=== PATIENT | male | born 1990 | race Caucasian/White ===

== ENCOUNTER 2016-08-26 18:51 | Emergency (ER) | payer MEDICAID ==
[2016-08-26] MEDS ORDERED: HYDROcod/ACETAM 5/325 MG TABLET PO STA (19:48)
[2016-08-26] MEDS ORDERED: KETOROLAC 60 MG/2 ML VIAL IM STA (19:48)
[2016-08-26] MEDS ORDERED: HYDROcod/ACETAM 5/325 MG TABLET ONE (19:50)
[2016-08-26] MEDS ORDERED: KETOROLAC 60 MG/2 ML VIAL ONE (19:50)
[2016-08-26] MEDS ORDERED: CYCLOBENZAPRINE 10 MG TABLET PO STA (20:37)
[2016-08-26] MEDS ORDERED: HYDROcod/ACET 5/325 Prepack 6 PO STA (20:37)
[2016-08-26] MEDS ORDERED: HYDROcod/ACET 5/325 Prepack 6 PO ONE (20:40)
[2016-08-26] MEDS ORDERED: CYCLOBENZAPRINE 10 MG TABLET PO ONE (20:41)
== END 2016-08-26 20:56 | disposition home or self-care (01) ==
DX: S43.402A Unspecified sprain of left shoulder joint, initial encounter (principal); Z87.891 Personal history of nicotine dependence; S70.02XA Contusion of left hip, initial encounter; W10.9XXA Fall (on) (from) unspecified stairs and steps, initial encounter
CPT/HCPCS: 72170; 73030; 96372; 99283; A9270

== ENCOUNTER 2017-02-26 17:10 | Emergency (ER) | payer MEDICAID ==
[2017-02-26 17:23] VITALS: BP 129/76
[2017-02-26] MEDS ORDERED: DEXAMETHASONE 10 MG/ML VIAL PO STA (19:36)
[2017-02-26] MEDS ORDERED: LIDOCAINE PATCH 5% TOP STA (19:36)
[2017-02-26] MEDS ORDERED: KETOROLAC 60 MG/2 ML VIAL IM STA (19:36)
[2017-02-26] MEDS ORDERED: CYCLOBENZAPRINE 10 MG TABLET PO STA (19:36)
--- NOTE | 2017-02-26 19:39 | ED Physician Documentation ---
History of Present Illness - Stated complaint Stated Complaint: BACK PX - Chief complaint Chief Complaint: Back Pain - Additonal information Additional information: hx from pt 26 y/o m hx back pain at L5S1 recent lifting aggravated the chronic pain pain down R leg no incont or saddle anesthesia Review of Systems Constitutional: denies: Fever, Chills Cardiac: denies: Chest pain / pressure, Palpitations Respiratory: denies: Dyspnea, Cough GI: denies: Abdominal Pain Musculoskeletal: reports: Back pain Neurologic: denies: Focal weakness (except 2/2 pain), Numbness PD PAST MEDICAL HISTORY - Past Medical History Cardiovascular: None, High cholesterol Musculoskeletal: Osteoarthritis, Chronic back pain - Past Surgical History Past Surgical History: Yes - Present Medications Home Medications: Ambulatory Orders Medication Instructions Recorded Confirmed Cyclobenzaprine [Flexeril] 10 mg PO TID PRN #20 tablet 02/26/17 Lidocaine Patch 5% [Lidoderm Patch] 1 each TOP DAILY PRN #10 patch 02/26/17 predniSONE [Deltasone] 20 mg PO [id number] #21 tab 02/26/17 - Allergies Allergies/Adverse Reactions: Allergies Allergy/AdvReac Type Severity Reaction Status Date / Time No Known Drug Allergies Allergy Verified 08/26/16 19:11 - Social History Does the pt smoke?: Yes Smoking Status: Former smoker Does the pt drink ETOH?: Yes Does the pt have substance abuse?: No - Immunizations Immunizations are current?: Yes - POLST Patient has POLST: No PD ED PE NORMAL - Vitals Vital signs reviewed: Yes - Neck Neck: Supple, no meningeal sign - Cardiac Cardiac: RRR - Respiratory Respiratory: No respiratory distress, Clear bilaterally - Abdomen Abdomen: Soft, Non tender, Other (no pulsatile mass) - Back Back: Other (diffuse low back TTP but no focal spine tendernss redness warmth or swelling) - Neuro Neuro: Other (hip flexion knee ext foot dorsi plantar and great toe ext 5/5, no ankle clonus, could not check patellar DTR and pt was standing, denies saddle anesthesia, ) Results - Vitals Vitals: Vital Signs - 24 hr 02/26/17 17:21 Temperature 36.2 C L Heart Rate 82 Respiratory 18 Rate Blood Pressure 129/76 O2 Saturation 99 Oxygen O2 Source Room air Departure - Departure Disposition: 01 Home, Self Care Clinical Impression: Back pain with sciatica Condition: Good Instructions: ED Low Back Pain Injury, ED Sciatica Prescriptions: predniSONE [Deltasone] 20 mg PO [id number] #21 tab Cyclobenzaprine [Flexeril] 10 mg PO TID PRN #20 tablet PRN Reason: Spasms Lidocaine Patch 5% [Lidoderm Patch] 1 each TOP DAILY PRN #10 patch PRN Reason: Pain Comments: The steroids will decrease the nerve inflammation causing the leg pain - do not take ibuprofen or naproxen at the same time The lidocaine patches can be applied up to 12 hr a day to whatever area hurts most. The flexeril is a muscle relaxant - it might make you drowsy I wrote a note off work When you get established with a PMD I would recommend a referral to PT Forms: Activity restrictions
[2017-02-26] MEDS ORDERED: DEXAMETHASONE 10 MG/ML VIAL ONE (19:46)
[2017-02-26] MEDS ORDERED: CYCLOBENZAPRINE 10 MG TABLET PO ONE (19:46)
[2017-02-26] MEDS ORDERED: KETOROLAC 60 MG/2 ML VIAL ONE (19:47)
[2017-02-26] MEDS ORDERED: CHERRY SYRUP 10 ML UDC PO ONE (19:47)
[2017-02-26] MEDS ORDERED: LIDOCAINE PATCH 5% TOP ONE (19:47)
== END 2017-02-26 20:00 | disposition home or self-care (01) ==
LOC: ED 17:10
DX: M54.41 Lumbago with sciatica, right side (principal)
CPT/HCPCS: 96372; 99283; A9270

== ENCOUNTER 2017-04-08 13:58 | Emergency (ER) | payer MEDICAID ==
[2017-04-08] MEDS ORDERED: DEXAMETHASONE 10 MG/ML VIAL PO STA (15:35)
[2017-04-08] MEDS ORDERED: LIDOCAINE PATCH 5% TOP STA (15:35)
[2017-04-08] MEDS ORDERED: DEXAMETHASONE 10 MG/ML VIAL ONE (15:57)
[2017-04-08] MEDS ORDERED: CHERRY SYRUP 10 ML UDC PO ONE (15:57)
[2017-04-08] MEDS ORDERED: LIDOCAINE PATCH 5% TOP ONE (15:57)
[2017-04-08 15:59] VITALS: BP 145/86
--- NOTE | 2017-04-08 16:16 | XRAY Preliminary Report ---
Exam: XR Cervical Spine 2 View IMPRESSION: Mild scoliosis, straightening. No definite acute disease. [facility] SITE ID: [id number]
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
[2017-04-08] MEDS ORDERED: traMADol 50 MG TABLET PO STA (16:34)
[2017-04-08] MEDS ORDERED: traMADol 50 MG TABLET PO ONE (16:57)
[2017-04-08] MEDS ORDERED: NICOTINE 14 MG PATCH TOP STA (17:19)
[2017-04-08] MEDS ORDERED: NICOTINE 14 MG PATCH TOP ONE (17:24)
== END 2017-04-08 17:51 | disposition short-term general hospital (02) ==
LOC: ED 13:58
DX: M54.5 Low back pain (principal); G89.29 Other chronic pain; R32 Unspecified urinary incontinence; E78.00 Pure hypercholesterolemia, unspecified; M19.90 Unspecified osteoarthritis, unspecified site; Z87.891 Personal history of nicotine dependence
CPT/HCPCS: 51798; 72040; 99283; 99284; A9270

== ENCOUNTER 2017-04-08 17:50 | Outpatient (CLI) | payer MEDICAID | END 2017-04-08 17:51 | disposition short-term general hospital (02) | LOC: EMS 17:50 | PROVIDERS: ATTEND Surgery | DX: M54.5 Low back pain (principal) | CPT/HCPCS: A0170; A0425; A0428 ==